=== PATIENT | female | born 1995 | race Caucasian/White ===

== ENCOUNTER 2017-01-13 21:23 | Emergency (ER) ==
[2017-01-13 22:16] LABS: MANUAL DIFF NEEDED? NO
[2017-01-13 22:23] LABS: BASO% 0.4 % (0.0-0.8); EOS# 0.07 X1000 (0.0-0.7); EOS% 0.9 % (0.0-10.0); HEMATOCRIT 38.3 % (37.0-47.0); HEMOGLOBIN 12.9 g/dL (12.0-16.0); LYMPH# 2.61 X1000 (1.2-3.4); LYMPH% 32.3 % (20.5-51.1); MCH 27.9 PG (27-31); MCHC 33.7 g/dL (33-37); MCV 82.9 FL (81-99); MONO# 1.03 X1000 (0.11-0.59); MONO% 12.7 % (1.7-9.3); MPV 9.6 FL (7.4-10.4); NEUT% 53.7 % (42.2-75.2); PLT 244 X1000 (130-400); RBC 4.62 XMIL (4.2-5.4)
[2017-01-13 22:40] LABS: AGAP 9; ALBUMIN 3.9 g/dL (3.5-5.0); ALKALINE PHOSPHATASE 57 U/L (32-104); BUN 12 mg/dL (8-22); CALCIUM 9.4 mg/dL (8.8-10.2); CHLORIDE 106 mmol/L (98-107); COSMO 276; GOT 19 U/L (10-30); GPT 14 U/L (10-36); POTASSIUM 3.7 mmol/L (3.5-5.1); SODIUM 138 mmol/L (136-145); TCO2 24 mmol/L (25-35); TOTAL PROTEIN 6.4 g/dL (6.3-8.3)
--- NOTE | 2017-01-13 23:13 | PROVIDER DOCUMENTATION ---
HPI-Female /OB/Breast <Arcadio Gudino - Last Filed: 01/14/17 01:04> - General Source: reports: patient - History of Present Illness-Female /OB Does patient report she is ?: Yes Location of complaint: reports: RLQ, LLQ, suprapubic Radiation: reports: none Quality of Pain: reports: cramping Onset/Duration: reports: this evening Timing: reports: still present Context/Activities at Onset: reports: none Related Symptoms: reports: vaginal bleeding, abdominal pain Similar Symptoms Previously?: Yes Recently seen or treated by another doctor?: No - LMP/ History Menstrual Status: currently : 11 Para: 0 : 10 Prior Delivery: N/A HCG confirmation: home preg test <Elizabeth Lopez - Last Filed: 01/14/17 01:06> - General Chief Complaint: Female Stated Complaint: "HAVING A MISCARRIGE" Time Seen by Provider: 01/13/17 22:41 Allergies/Adverse Reactions: Patient Allergies Allergy/AdvReac Type Severity Reaction Status Date / Time No Known Allergies Allergy Verified 10/24/16 03:31 Home Medications: Home Medication List Medication Instructions Recorded Confirmed Last Taken Type Tramadol [Ultram] 50 mg PO Q8HR #14 tablet 01/14/17 Unknown Rx - History of Present Illness-Female /OB Nature of Presenting Problem: 21 year old F presents to the ED with a cc of vaginal bleeding and lower ABD pain. Pt states that she took a OTC test 2 days ago and it was positive. Pt states that she knows that she is having a miscarriage because she has had 10 before. (Elizabeth Lopez) Review of Systems - Adult - REVIEW OF SYSTEMS - ADULT Constitutional: denies: chills, fever Eyes: reports: no symptoms reported Ears, Nose, Mouth & Throat: reports: no symptoms reported Cardiovascular: reports: no symptoms reported Respiratory: denies: cough, shortness of breath Gastrointestinal: reports: abdominal pain. denies: diarrhea, nausea, vomiting Genitourinary: reports: other (vaginal bleeding). denies: dysuria, hematuria Musculoskeletal: denies: back pain, muscle aches, muscle weakness Integumentary: reports: no symptoms reported Neurological: reports: no symptoms reported Psychiatric: reports: no symptoms reported Endocrine: reports: no symptoms reported Hematologic/Lymphatic: reports: no symptoms reported Allergic/Immunologic: reports: no symptoms reported All Other Systems: Reviewed and Negative <Elizabeth Lopez - Last Filed: 01/14/17 01:06> Past History - Adult - PAST MEDICAL HISTORY-ADULT Major Childhood Illnesses: reports: denies history Cardiovascular: reports: denies history Respiratory: reports: denies history Gastrointestinal: reports: denies history Obstetrical/Gynecological: reports: denies history Genitourinary: reports: denies history Musculoskeletal: reports: denies history Neurological: reports: denies history Endocrine/Immune: reports: denies history Other Conditions: reports: denies history - FAMILY HISTORY Family History: reviewed, not pertinent <Arcadio Gudino - Last Filed: 01/14/17 01:04> - PAST MEDICAL HISTORY-ADULT Review of Records: reports: Nursing Assessment Review, Medications Reviewed Major Childhood Illnesses: reports: denies history Neurological: reports: Seizures/Epilepsy Psychiatric: reports: other (ADHD) - PRIOR SURGERIES/PROCEDURES Surgical/Procedure History: reports: tonsillectomy - IMMUNIZATION STATUS Childhood Immunizations: See Nurse Assessment Flu Vaccine: See Nurse Assessment - SOCIAL HISTORY Smoking: cigarettes, less than 1 pack/day Provider spent 3-5 mins advising pt. on dangers of tobacco.: Discussed manners to quit use, and f/u contacts for add'l counseling. Substance Use: marijuana Alcohol Use Frequency: never <Elizabeth Lopez - Last Filed: 01/14/17 01:06> Physical Exam-General - PHYSICAL EXAM-ADULT Initial Vital Signs Reviewed: Yes - CONSTITUTIONAL General Appearance: appears well, alert, no apparent distress - RESPIRATORY Respiratory: chest non-tender, lungs clear, normal breath sounds - CARDIOVASCULAR Cardiovascular: normal peripheral pulses, regular rate, rhythm, no edema - GASTROINTESTINAL (ABDOMEN) Abdominal Exam: normal bowel sounds, soft, tenderness (lower ABD tenderness) - GENITOURINARY Female Genitalia/Pelvic Exam: external exam normal, other (minimal blood in vaginal wall) - MUSCULOSKELETAL Extremity: normal inspection - SKIN Integumentary: normal color, normal turgor, warm/dry - PSYCHIATRIC Psych/Mental Status: normal mood/affect, normal thought content, normal thought process, oriented x 3 <Elizabeth Lopez - Last Filed: 01/14/17 01:06> Progress <Arcadio Gudino - Last Filed: 01/14/17 01:04> - ULTRASOUND (By Radiology) 1 US Study: Transvaginal Impression: Normal (No intrauterine is identified. Findings are technically indeterminate, correlate with hCG levels.: Dr. Zarco- Real Rad Radiologist.) <Elizabeth Lopez - Last Filed: 01/14/17 01:06> - PLAN OF CARE/RESULTS Progress/Plan/Lab Results: Orders Category Date Time Status Pelvic set up DIRECTED Care 01/13/17 23:15 Active US PELVIC NON-TWIST MAKER COMPLETE [US] Stat Exams 01/13/17 23:13 Taken CBC WITH DIFF [HEME] Stat Lab 01/13/17 22:10 Completed COMPREHENSIVE METABOLIC PANEL [CHEM] Stat Lab 01/13/17 22:10 Completed QUANT TEST Stat Lab 01/13/17 22:10 Completed RHOGAM WORKUP [BBK] Stat Lab 01/13/17 22:10 Completed Hydrocodone/APAP 10 mg/325 mg [[place]-10] Med 01/14/17 01:03 Discontinued 1 each PO NOW ONE Laboratory Tests 01/13/17 01/13/17 01/13/17 22:10 22:10 22:10 WBC 8.09 RBC 4.62 Hgb 12.9 Hct 38.3 MCV 82.9 MCH 27.9 MCHC 33.7 RDW Std Deviation 13.4 Plt Count 244 MPV 9.6 Immature Gran % (Auto) 0.0 Neut % (Auto) 53.7 Lymph % (Auto) 32.3 [place] % (Auto) 12.7 H Eos % (Auto) 0.9 Baso % (Auto) 0.4 Immature Gran # (Auto) 0.00 Neut # (Auto) 4.35 Lymph # (Auto) 2.61 [place] # (Auto) 1.03 H Eos # (Auto) 0.07 Baso # (Auto) 0.03 Sodium 138 Potassium 3.7 Chloride 106 Carbon Dioxide 24 L Anion Gap 9 BUN 12 Creatinine 0.7 Estimated GFR/1.73 m2 > 60 BUN/Creatinine Ratio 17 Glucose 111 H Calculated Osmolality 276 Calcium 9.4 Total Bilirubin 0.20 AST 19 ALT 14 Alkaline Phosphatase 57 Total Protein 6.4 Albumin 3.9 Globulin 3.0 Albumin/Globulin Ratio 2.0 Ser , Semi-Qnt 6.7 ABO/Rh RhIG Candidate? 01/13/17 22:10 WBC RBC Hgb Hct MCV MCH MCHC RDW Std Deviation Plt Count MPV Immature Gran % (Auto) Neut % (Auto) Lymph % (Auto) [place] % (Auto) Eos % (Auto) Baso % (Auto) Immature Gran # (Auto) Neut # (Auto) Lymph # (Auto) [place] # (Auto) Eos # (Auto) Baso # (Auto) Sodium Potassium Chloride Carbon Dioxide Anion Gap BUN Creatinine Estimated GFR/1.73 m2 BUN/Creatinine Ratio Glucose Calculated Osmolality Calcium Total Bilirubin AST ALT Alkaline Phosphatase Total Protein Albumin Globulin Albumin/Globulin Ratio Ser , Semi-Qnt ABO/Rh A POSITIVE RhIG Candidate? NO Vital Signs - 24 hr 01/13/17 21:41 Temperature 98 F Pulse Rate 101 H Respiratory 18 Rate Blood Pressure 119/63 O2 Sat by Pulse 98 Oximetry (Arcadio Gudino) Departure - Departure Time of Disposition Order: 01:02 Certified Medical Emergency: Emergent <Arcadio Gudino - Last Filed: 01/14/17 01:04> <Elizabeth Lopez - Last Filed: 01/14/17 01:06> - Departure DIAGNOSIS: Miscarriage Disposition: HOME 01 Additional Instructions: ED Follow Up Instructions: You have been treated by a care provider in the Emergency Department. These instructions are being provided to you so you can have an understanding of how to care for yourself upon discharge. Upon discharge from the Emergency Department, you are responsible for making arrangements for follow-up care by a physician of your choice. Take all prescribed medications as directed. Return to the Emergency Department immediately for any new or worsening symptoms. You may call the Physician Referral phone number at [phone] to obtain a list of Physicians who are taking new patients. Prescriptions: Tramadol [Ultram] 50 mg PO Q8HR #14 tablet Referrals: Lilly Sanchez MD [STAFF PHYSICIAN] - Call for Appoint. 1-2days (Follow up in 2 days for re-check) Attestation - Physician/ REINA Attestation Patient care was provided by Advanced Practice Provider:: Yes Advanced Practice Provider:: Arcadio Gudino Advanced Practice Provider documentation review:: The Mid-level provider documentation, treatment plan and medical decision making was reviewed by the physician who agrees with all treatment and medical decision making by the MLP. <Arcadio Gudino - Last Filed: 01/14/17 01:04> - Scribe Verification/Attestation Scribe:: Elizabeth Lopez Acting as Scribe for:: Arcadio Gudino Scribe documention review:: This chart was documented by a scribe and accurately reflects the service the provider performed and the decisions made by the provider. <Elizabeth Lopez - Last Filed: 01/14/17 01:06> Physician Attestation - Physician Attestation I, the provider, attest to the following statement:: Arcadio Gudino Physician documentation Attestation:: This documentation recorded by the scribe accurately reflects the service I personally performed and the decisions made by me. <Arcadio Gudino - Last Filed: 01/14/17 01:04> - Physician Attestation I, the provider, attest to the following statement:: Arcadio Gudino Physician documentation Attestation:: This documentation recorded by the scribe accurately reflects the service I personally performed and the decisions made by me. <Elizabeth Lopez - Last Filed: 01/14/17 01:06>
[2017-01-14] MEDS ORDERED: NORCO-10 PO ONE (01:03)
[2017-01-14 01:42] VITALS: BP 106/72
--- NOTE | 2017-01-14 09:19 | Diag Imaging Result Document ---
PROCEDURE NAME: US PELVIC NON-NURSE ASSESSOR COMPLETE - 01/13/2017 PELVIC ULTRASOUND ENDOVAGINAL SCAN: FINDINGS: The uterus is nongravid in appearance measuring 7.5 x 3.1 x 3.1 cm. The endometrial stripe measures 5 mm. There is a 4-mm follicle in the right ovary. The left ovary is not demonstrated. There is no evidence of free fluid. IMPRESSION: No evidence of intrauterine gestation. Otherwise, no demonstrated abnormality. The left ovary was not identified however.
== END 2017-01-14 01:40 | disposition home or self-care (01) ==
LOC: P.ED 21:23
DX: O03.9 Complete or unspecified spontaneous abortion without complication (principal); R10.31 Right lower quadrant pain; R10.32 Left lower quadrant pain; N93.9 Abnormal uterine and vaginal bleeding, unspecified; R10.819 Abdominal tenderness, unspecified site; F17.210 Nicotine dependence, cigarettes, uncomplicated; Z71.6 Tobacco abuse counseling
CPT/HCPCS: 76856; 80053; 84702; 85025; 86900; 86901